=== PATIENT | female | born 1990 | race Caucasian/White ===

== ENCOUNTER 2019-09-02 10:12 | Emergency (ER) | payer MEDICAID ==
[~2019-09-02] VITALS: Ht 172.7 cm; Wt 135.0 kg
[2019-09-02 10:14] VITALS: BP 136/87
[2019-09-02] MEDS ORDERED: AZIT-63 PO (10:42)
[2019-09-02 11:05] LABS: CLARITY,URINE CLOUDY (Clear); COLOR,URINE YELLOW (Yellow); GLUCOSE, URINE NEGATIVE (Neg); KETONES,URINE NEGATIVE (Neg); LEUKOCYTE ESTERASE ,URINE NEGATIVE (Neg); NITRITES, URINE NEGATIVE (Neg); OCCULT BLOOD,URINE NEGATIVE (Neg); PH,URINE 5.5 (4.8-8.0); PROTEIN,URINE NEGATIVE (Neg); UROBILINOGEN,URINE 0.2 E.U/dL (0.2-1.0)
[2019-09-02 11:06] LABS: UA COLLECTION TYPE CLN CATCH MIDSTREAM
[2019-09-02 11:11] LABS: MUCUS STRANDS MANY /LPF (Neg); SQUAMOUS EPITHELIAL CELL,UR MANY /LPF (FEW)
[2019-09-02 11:12] LABS: BACTERIA,URINE 1+ /HPF (Neg); RBC,URINE 0-2 /HPF (0-2); WBC CLUMPS,URINE FEW /HPF (NEGATIVE); WBC,URINE 0-4 /HPF (0-4)
== END 2019-09-02 11:00 | disposition home or self-care (01) ==
LOC: ER 10:13
DX: R05 Cough (principal); B34.9 Viral infection, unspecified; R50.9 Fever, unspecified; J02.9 Acute pharyngitis, unspecified; G89.29 Other chronic pain; Z88.0 Allergy status to penicillin; Z79.899 Other long term (current) drug therapy
CPT/HCPCS: 81001; 99283

== ENCOUNTER 2023-10-06 21:41 | Emergency (ER) | payer MEDICAID ==
[~2023-10-06] VITALS: Ht 172.7 cm; Wt 113.6 kg
[~2023-10-06 21:41] MED LIST: ARIP10TA15 PO; CLON2TAB11 PO; DEXT50CP PO; DULO60CA65 PO; HYDR-3686 PO; LAMO100T PO; NICO-687 TD; SERT-433 PO; ZOLP10TA PO
[2023-10-06 21:50] VITALS: BP 123/83; PULSE 102; RESP 18; O2SAT 100
[2023-10-07] MEDS: amox tr/potassium clavulanate 875/125mg TAB PO ONE (00:17)
[2023-10-07] MEDS: dexamethasone sod phosphate 10mg/ml inj IM STA (00:17)
[2023-10-07] MEDS ORDERED: PRED50TA PO (05:10)
[2023-10-07] MEDS ORDERED: AMOX-580 PO (05:10)
[2023-10-07 05:43] VITALS: TEMP 98.8
== END 2023-10-07 05:46 | disposition home or self-care (01) ==
LOC: ER 21:41
DX: R05.8 Other specified cough (principal); Z20.822 Contact with and (suspected) exposure to COVID-19; F17.200 Nicotine dependence, unspecified, uncomplicated; Z91.041 Radiographic dye allergy status; Z79.2 Long term (current) use of antibiotics; Z79.899 Other long term (current) drug therapy
CPT/HCPCS: 36415; 71045; 87811; 96372; 99284; J1100; 87502; 87503

== ENCOUNTER 2023-10-13 12:55 | Emergency (ER) | payer MEDICAID ==
[~2023-10-13] VITALS: Ht 170.2 cm; Wt 119.0 kg
[~2023-10-13 12:55] MED LIST changes: +AMOX-580 PO; +PRED50TA PO
[2023-10-13 13:17] VITALS: BP 120/80; PULSE 76; RESP 16; TEMP 97.6; O2SAT 100
[2023-10-13 13:55] LABS: BILIRUBIN,URINE NEGATIVE (Neg); CLARITY,URINE CLEAR (Clear); COLOR,URINE YELLOW (Yellow); GLUCOSE, URINE NEGATIVE (Neg); KETONES,URINE TRACE mg/dl (Neg); LEUKOCYTE ESTERASE ,URINE TRACE (Neg); NITRITES, URINE NEGATIVE (Neg); OCCULT BLOOD,URINE NEGATIVE (Neg); PH,URINE 6.5 (4.8-8.0); PROTEIN,URINE NEGATIVE (Neg); URINE HCG NEGATIVE (NEG); UROBILINOGEN,URINE 0.2 E.U/dL (0.2-1.0)
[2023-10-13 13:59] LABS: UA COLLECTION TYPE CLN CATCH MIDSTREAM
[2023-10-13 14:00] LABS: BACTERIA,URINE FEW /HPF (Neg); MUCUS STRANDS FEW /LPF (Neg); RBC,URINE 0 /HPF (0-2); SQUAMOUS EPITHELIAL CELL,UR MODERATE /LPF (FEW)
[2023-10-13] MEDS: azithromycin 250mg tablet PO ONE (14:54)
[2023-10-13] MEDS: CefTRIAXone 250MG IM Kit w/LIDOcaine IM ONE (14:55)
[2023-10-13] MEDS ORDERED: METR-159 PO (17:16)
[2023-10-14 07:21] LABS: C DIFF ANTIGEN NEGATIVE (NEGATIVE); C DIFF SPECIMEN=DIARRHEA? ACCEPTABLE; C DIFFICILE TOXINS A&B NEGATIVE (Neg)
== END 2023-10-13 15:31 | disposition home or self-care (01) ==
LOC: ER 12:55
DX: R19.7 Diarrhea, unspecified (principal); N39.0 Urinary tract infection, site not specified; Z20.2 Contact with and (suspected) exposure to infections with a predominantly sexual mode of transmission; Z91.041 Radiographic dye allergy status; Z79.899 Other long term (current) drug therapy; Z79.2 Long term (current) use of antibiotics
CPT/HCPCS: 81001; 81025; 87045; 87046; 87088; 87324; 87449; 89055; 96372; 99283; J0696

== ENCOUNTER 2023-10-15 10:56 | Emergency (ER) | payer MEDICAID ==
[~2023-10-15] VITALS: Ht 170.2 cm; Wt 119.8 kg
[~2023-10-15 10:56] MED LIST changes: +METR-159 PO
[2023-10-15 11:01] VITALS: BP 143/88; PULSE 93; RESP 18; TEMP 97.3; O2SAT 98
== END 2023-10-15 16:25 | disposition left against medical advice (07) ==
LOC: ER 10:57
DX: R19.7 Diarrhea, unspecified (principal); R42 Dizziness and giddiness; Z53.21 Procedure and treatment not carried out due to patient leaving prior to being seen by health care provider

== ENCOUNTER 2023-10-30 18:20 | Emergency (ER) | payer MEDICAID ==
[~2023-10-30] VITALS: Ht 170.2 cm; Wt 120.5 kg
[~2023-10-30 18:20] MED LIST changes: -METR-159 PO
[2023-10-30 18:29] VITALS: BP 144/89; PULSE 88; TEMP 98.1; O2SAT 98
[2023-10-30] MEDS ORDERED: dexamethasone sod phosphate 10mg/ml inj IM STA (19:32)
[2023-10-30] MEDS ORDERED: ketorolac trometh. 30mg/ml inj. IM ONE (19:35)
[2023-10-30] MEDS ORDERED: PRED20TA PO (19:38)
[2023-10-30 20:29] VITALS: RESP 16
[2023-10-30] MEDS: ketorolac tromethamine 15mg/ml inj. IM ONE (20:29)
[2023-10-30] MEDS: dexamethasone 4mg tablet PO ONE ×2 (20:31)
== END 2023-10-30 20:44 | disposition home or self-care (01) ==
LOC: ER 18:20
DX: S93.401A Sprain of unspecified ligament of right ankle, initial encounter (principal); S96.911A Strain of unspecified muscle and tendon at ankle and foot level, right foot, initial encounter; Z91.041 Radiographic dye allergy status; Z79.2 Long term (current) use of antibiotics; Z79.899 Other long term (current) drug therapy; X58.XXXA Exposure to other specified factors, initial encounter; Y93.89 Activity, other specified; Y92.89 Other specified places as the place of occurrence of the external cause; Y99.8 Other external cause status
CPT/HCPCS: 73610; 96372; 99283; J1885; A6449